=== PATIENT | male | born 1995 | race Caucasian/White ===

== ENCOUNTER 2018-12-30 15:32 | Emergency (ER) | payer OTHER ==
[~2018-12-30] VITALS: Ht 165.1 cm; Wt 65.8 kg
[2018-12-30] MEDS ORDERED: NOHOMEMEDICATIONS (15:42)
[2018-12-30] MEDS ORDERED: BACTRIM DS TAB1 EAC1 PO (16:42)
[2018-12-30 16:53] VITALS: BP 125/76
== END 2018-12-30 16:54 | disposition home or self-care (01) ==
LOC: M.ERS 15:32
DX: S81.012A Laceration without foreign body, left knee, initial encounter (principal); W26.0XXA Contact with knife, initial encounter; Y93.89 Activity, other specified; Y92.89 Other specified places as the place of occurrence of the external cause; Y99.8 Other external cause status; F17.200 Nicotine dependence, unspecified, uncomplicated; Z88.0 Allergy status to penicillin

== ENCOUNTER 2019-01-11 22:31 | Emergency (ER) | payer OTHER ==
[~2019-01-11] VITALS: Ht 165.1 cm; Wt 65.8 kg
[~2019-01-11 22:31] MED LIST: BACTRIM DS TAB1 EAC1 PO; NOHOMEMEDICATIONS
[2019-01-11 23:14] VITALS: BP 125/69
== END 2019-01-11 23:14 | disposition home or self-care (01) ==
LOC: M.ERS 22:31
DX: S81.012D Laceration without foreign body, left knee, subsequent encounter (principal); Z88.0 Allergy status to penicillin; X58.XXXD Exposure to other specified factors, subsequent encounter